=== PATIENT | female | born 1980 | race African-American/Black ===

== ENCOUNTER → 2016-03-26 | Outpatient (CLI) | payer OTHER ==
[2014-01-14 09:56] VITALS: BP 156/106
[~2016-03-26] MED LIST: LISI1TAB5 PO
--- NOTE | 2016-03-26 13:56 | KCIC ---
PROCEDURE Thyroid sonogram. HISTORY Thyroid nodule. TECHNIQUE Sonographic imaging of the thyroid was performed. COMPARISON 02/02/2015 FINDINGS The right thyroid lobe measures 5.1 x 2.6 x 2.4 cm. The left thyroid lobe measures 4.4 x 1.9 x 1.5 cm. The isthmus measures 8.2 mm in thickness. There is an isoechoic nodule with hypoechoic rim and internal complex cystic component within the inferior right thyroid lobe, measuring 2.5 x 2.3 x 2.3 cm. The internal cystic component measures 1.4 cm compared to a prior measurement of 0.7 cm. There is an isoechoic nodule with slight hypoechoic rim within the inferior left thyroid lobe measuring 1.1 x 0.8 x 0.7 cm. No new nodule is seen. IMPRESSION 1. 2.5 x 2.3 x 2.3 cm right thyroid nodule with 1.4 cm complex cystic component. The prior overall nodule size was 2.5 x 2.3 x 2.0 cm and the prior cystic component size was 0.7 cm. The minimal interval change in the solid lesion component may be due to differences in measurement technique. 2. 1.1 x 0.8 x 0.4 cm nodule within the inferior left thyroid lobe, increased compared to prior measurements of 0.6 x 0.5 x 0.4 cm. Electronically signed by: Zoe Patel (Mar 26, 2016 13:55:18)
--- NOTE | 2016-03-26 15:07 | KCIC ---
Bilateral digital screening mammograms with CAD: HISTORY Routine screening. COMPARISON Comparison is made to previous study dated 02/02/2015. FINDINGS Breast density category B. The skin and nipples show no abnormalities. No abnormal lymph nodes are seen in the axilla. The breast parenchyma shows scattered fibroglandular density. There are no dominant masses, suspicious calcifications or architectural distortions. IMPRESSION No evidence of malignancy. Recommend routine annual mammographic screening. This study was interpreted with the benefit of Computerized Aided Detection (CAD). Mammography is not 100% sensitive in detecting breast cancer. Therefore, a self breast exam and a clinical breast exam are very important. A negative mammogram does not negate a clinically suspicious finding and should not result in a delay in biopsying a clinically suspicious abnormality. BI-RADS category 1. Negative. This patient's information has been entered into a reminder system for the patient to be notified with the results of this examination and a target date for her next mammograms. Electronically signed by: Kayla Castro MD (Mar 26, 2016 15:06:52)
== END | disposition home or self-care (01) ==
LOC: KCIC US 13:02
PROVIDERS: ATTEND Family Medicine
DX: Z12.31 Encounter for screening mammogram for malignant neoplasm of breast (principal); E04.1 Nontoxic single thyroid nodule
CPT/HCPCS: 76536; G0202; 77067

== ENCOUNTER → 2017-01-03 | Outpatient (CLI) | payer OTHER ==
[2014-01-14 09:56] VITALS: BP 156/106
--- NOTE | 2017-01-03 11:55 | KCIC ---
EXAM: Thyroid sonogram. HISTORY: Thyroid nodule follow-up. TECHNIQUE: Sonographic imaging of the thyroid was performed. COMPARISON: 03/26/2016. FINDINGS: The right thyroid lobe measures 5.3 x 2.2 x 2.5 cm. The left thyroid lobe measures 4.4 x 1.4 x 1.9 cm. The isthmus measures 4.9 mm. The thyroid parenchyma is diffusely heterogeneous. There is a solid heterogeneous hypervascular nodule within the mid inferior right thyroid lobe measuring 2.6 x 2.2 x 1.7 cm, previously measuring 2.5 x 2.3 x 2.3 cm. There is a solid heterogeneous nodule within the inferior left thyroid lobe measuring 1.1 x 0.9 x 0.8 cm, previously measuring 1.1 x 0.8 x 0.7 cm. IMPRESSION: 1. Solid hypervascular nodule within the right thyroid lobe measuring 2.6 cm in maximum dimension. The maximum nodule measurement is increased compared to the prior study. However, the overall volume of the nodule is decreased compared to the prior study. This may be due to differences in imaging technique. 2. Fairly stable 1.1 cm solid nodule within the left lower lobe. Electronically signed by: Zoe Patel MD (01/03/2017 11:51 AM) [id number]
== END | disposition home or self-care (01) ==
LOC: KCIC US 09:33
PROVIDERS: ATTEND Family Medicine
DX: E04.2 Nontoxic multinodular goiter (principal)
CPT/HCPCS: 76536

== ENCOUNTER → 2018-03-24 | Outpatient (CLI) | payer OTHER ==
[2014-01-14 09:56] VITALS: BP 156/106
--- NOTE | 2018-03-24 16:07 | KCIC ---
THYROID ULTRASOUND: 03/24/2018 12:00 AM Indication: 37 years old Female. Thyroid nodules. Comparison: Thyroid ultrasound January 03, 2017. FINDINGS: Sonographic evaluation of the thyroid gland is performed utilizing grayscale and color Doppler. Right lobe: Normal in morphology and echotexture. Size: 5.3 x 2.6 x 2.3 cm Nodules: There is a circumscribed solid predominantly hyperechoic mass in the right thyroid lobe which measures 2.6 x 1.7 x 2.3 cm, previously 2.6 x 1.7 x 2.2 cm. Findings are not significant changed given differences in technique. Left lobe: Normal in morphology and echotexture. Size: 4.2 x 1.5 x 1.9 cm Nodules: Stable solid, ill-defined nodule in the posterior inferior left thyroid lobe measuring 9 x 7 x 9 mm, not significantly changed since prior exam examination. Isthmus: Measures 5 mm and is within normal limits. IMPRESSION: 1. Stable bilateral thyroid nodules measuring up to 2.6 x 1.7 x 2.3 cm in the mid to inferior right thyroid lobe. Electronically signed by: Chanel Flores MD (03/24/2018 4:02 PM) [id number]
== END | disposition home or self-care (01) ==
LOC: KCIC US 14:54
PROVIDERS: ATTEND Family Medicine
DX: E04.2 Nontoxic multinodular goiter (principal)
CPT/HCPCS: 76536

== ENCOUNTER → 2020-09-20 | Outpatient (CLI) | payer OTHER ==
[2014-01-14 09:56] VITALS: BP 156/106
[~2020-09-20] MED LIST changes: +LISI1TAB37 PO; -LISI1TAB5 PO
--- NOTE | 2020-09-20 09:39 | KCIC ---
EXAM: ULTRASOUND PELVIS INDICATION: Pelvic mass, irregular spotting for 2 months, pelvic pain. COMPARISON: None available. TECHNIQUE: Grayscale, color and spectral Doppler ultrasound images of the pelvis via transabdominal a nd transvaginal approach. FINDINGS: The uterus measures 13.8 x 8.2 x 5.5 cm and is anteverted. There is no myometrial mass. There is a ro und hypoechoic masslike structure measuring 2.9 x 2.7 x 2.0 cm in the endometrium with some periphera l vascularity, suspicious for a polyp. The right ovary measures 3.8 x 4.8 x 3.0 cm. There is a 2.4 x 2.8 x 2.0 cm anechoic simple cyst in th e right ovary. The left ovary measures 2.9 x 3.0 x 1.3 cm. Both ovaries have intact blood flow. No adnexal mass or free fluid. IMPRESSION: 1. 2.9 cm mass in the endometrium suspicious for an endometrial polyp. 2. 2.4 cm simple right ovarian cyst. Electronically signed by: Angelina Garcia MD (09/20/2020 9:37 AM) [id number]
--- NOTE | 2020-09-20 13:55 | KCIC ---
EXAM: THYROID ULTRASOUND. HISTORY: Thyroid nodule. Prior benign right biopsy. COMPARISON: 03/24/2018. FINDINGS: Sonographic evaluation of the thyroid gland was performed and evaluated using ACR TI-RADS c riteria. Right lobe: The right lobe measures 5.4 x 2.6 x 2.5 cm. The parenchyma is homogeneous. Nodule #1. Maximum size: 3.1 cm; Other 2 dimensions 2.6 x 2.4 cm. Previously 2.6 x 2.3 x 1.7 cm. Location: lower pole. ACR TI-RADS risk category: TR3 (3 points): FNA if 2.5 cm, follow-up if 1.5-2.4 cm in 1, 3, and 5 year s. Significant change in size (>= 20% in two dimensions and minimal increase of 2 mm): Yes. Change in features: No. Change in ACR TI-RADS risk category: No. Left lobe: The left lobe measures 4.3 x 1.7 x 1.5 cm. The parenchyma is homogeneous. Nodule #2. Maximum size: 1.2 cm; Other 2 dimensions 1.1 x 1.0 cm. Previously 0.9 x 0.7 cm. Location: lower pole. ACR TI-RADS risk category: TR4 (4-6 points): FNA if 1.5 cm, follow-up if 1-1.4 cm in 1, 2, 3, and 5 y ears. Significant change in size (>= 20% in two dimensions and minimal increase of 2 mm): Yes. Change in features: No. Change in ACR TI-RADS risk category: No. Isthmus: The isthmus is thickened at 7 mm. Number of spongiform nodules of at least 2 cm not described (TR1): 0. Number of mixed cystic and solid nodules of at least 1.5 cm not described (TR 2): 0. IMPRESSION/RECOMMENDATION: 1. Bilateral thyroid nodules have increased in size slowly since the prior study in 2019. The dominan t right nodule was benign on prior biopsy by report. Benignity is favored. Another follow-up is christofer garcia in one year. Electronically signed by: Mary Patterson MD (09/20/2020 1:53 PM) [facility]
== END ==
LOC: KCIC US 08:04
PROVIDERS: ATTEND Family Medicine
DX: E04.2 Nontoxic multinodular goiter (principal); N83.291 Other ovarian cyst, right side; R19.00 Intra-abdominal and pelvic swelling, mass and lump, unspecified site
CPT/HCPCS: 76536; 76856